=== PATIENT | male | born 1970 | race African-American/Black ===

== ENCOUNTER 2018-04-19 16:13 | Emergency (ER) | payer SELFPAY ==
[~2018-04-19] VITALS: Ht 167.6 cm; Wt 66.5 kg
[~2018-04-19 16:13] MED LIST: Celexa PO; DILANTIN100 MG PO; DURAGESIC25 MCG TD; ENDOCET 5-3251 EACH PO; FLURBIPROFEN BOTH EYES; KEPPRA500 MG PO; MELOXICAM7.5 MG PO; PAXIL10 MG PO; PERCOCET 5/31 TABLET PO; ROBAXIN750 MG PO; Robaxin PO; SERTRALINE HCL50 MG PO; TYLENOL REGULA325 MG PO; VISINE15 ML BOTH EYES; Xanax PO; ZOLPIDEM TARTRAT5 MG PO
[2018-04-19 18:56] VITALS: BP 130/81
== END 2018-04-19 18:58 | disposition home or self-care (01) ==
LOC: EME 16:13
DX: H57.11 Ocular pain, right eye (principal); F32.9 Major depressive disorder, single episode, unspecified; F41.9 Anxiety disorder, unspecified; Z86.69 Personal history of other diseases of the nervous system and sense organs; F17.200 Nicotine dependence, unspecified, uncomplicated
CPT/HCPCS: 99281; 99284